=== PATIENT | male | born 1940 | race Caucasian/White ===

== ENCOUNTER → 2020-04-04 | Outpatient (CLI) | payer MEDICARE, BC ==
[~2020-04-04] MED LIST: AMLODIPINE BESYL5 MG PO; ARICEPT10 MG PO; ASPIRIN CHEWABL81 MG PO; AVODART0.5 MG PO; CEFUROXIME500 MG PO; CELECOXIB200 MG PO; CINNAMON500 MG PO; CLOPIDOGREL75 MG PO; CO Q-1010 MG PO; CRESTOR10 MG PO; CYMBALTA60 MG PO; DONEPEZIL HCL10 MG PO; ESCITALOPRAM OXA5 MG PO; FARXIGA5 MG PO; FISH OIL 1,2001 EAC1 PO; FLOMAX 0.4 MG0.4 MG PO; IBUPROFEN800 MG PO; IMDUR ER TAB 3030 MG PO; IMDUR ER TAB 6060 MG PO; ISOSORBIDE MONO20 MG PO; JANUMET 50-5001 EACH PO; LEVEMIR FL100 UNIT/1 SQ; MEDROL4 MG PO; MEN'S ONE DAIL1 EACH PO; NIACIN1000 MG PO; PERCOCET 5/325 T1 EA PO; PRILOSEC OTC20 MG PO; REQUIP0.5 MG PO; VITAMIN B12-FO1 EACH PO; VITAMIN D31000 UNI1 PO; VITAMIN E1000 UNI1 PO; ZOFRAN4 MG PO
[2020-04-04 14:39] LABS: HEMOGLOBIN 13.6 gm/dl (14.0-17.5); RED BLOOD COUNT 4.49 M/UL (4.20-5.50); WHITE BLOOD COUNT 7.2 K/UL (4.5-11.0)
[2020-04-04 15:00] LABS: BUN/CREATININE RATIO 18 (0-10)
== END ==
LOC: LAB 14:11
PROVIDERS: Internal Medicine Interventional Cardiology
DX: R94.39 Abnormal result of other cardiovascular function study (principal); R07.9 Chest pain, unspecified; E11.9 Type 2 diabetes mellitus without complications; I10 Essential (primary) hypertension
CPT/HCPCS: 36415; 80048; 85025; 85610; 85730; 93005; U0003

== ENCOUNTER → 2020-04-09 | Outpatient (CLI) | payer MEDICARE, BC | LOC: CATH 09:30 | DX: I25.118 Atherosclerotic heart disease of native coronary artery with other forms of angina pectoris (principal); I10 Essential (primary) hypertension; I25.10 Atherosclerotic heart disease of native coronary artery without angina pectoris; I34.0 Nonrheumatic mitral (valve) insufficiency; E11.9 Type 2 diabetes mellitus without complications; R94.39 Abnormal result of other cardiovascular function study; E78.5 Hyperlipidemia, unspecified; Z79.4 Long term (current) use of insulin; Z79.899 Other long term (current) drug therapy; Z88.0 Allergy status to penicillin; Z20.822 Contact with and (suspected) exposure to COVID-19 | CPT/HCPCS: 82962; 87635; 99152; 99153; C1769; C1894; J1644; J2250; J3010; J7030; Q9967 ==

== ENCOUNTER 2020-05-03 16:09 | Emergency (ER) | payer MEDICARE, BC ==
[2020-05-03 17:08] LABS: HEMOGLOBIN 12.7 gm/dl (14.0-17.5); RED BLOOD COUNT 4.15 M/UL (4.20-5.50); WHITE BLOOD COUNT 5.1 K/UL (4.5-11.0)
== END 2020-05-04 02:00 | disposition home or self-care (01) ==
LOC: ER1 16:09
PROVIDERS: Student in an Organized Health Care Education/Training Program
DX: R07.9 Chest pain, unspecified (principal); E11.9 Type 2 diabetes mellitus without complications; Z20.822 Contact with and (suspected) exposure to COVID-19; Z79.82 Long term (current) use of aspirin; Z87.891 Personal history of nicotine dependence; Z88.0 Allergy status to penicillin
CPT/HCPCS: 0240U; 36600; 71045; 80053; 82550; 82553; 82803; 83690; 83874; 83880; 84484; 85025; 93005; 99285; Q9967

== ENCOUNTER 2020-08-16 12:26 | Emergency (ER) | payer MEDICARE, BC ==
[2020-08-16 13:51] LABS: HEMOGLOBIN 12.7 gm/dl (14.0-17.5); RED BLOOD COUNT 4.24 M/UL (4.20-5.50); WHITE BLOOD COUNT 5.9 K/UL (4.5-11.0)
[2020-08-16 14:18] LABS: BUN/CREATININE RATIO 23 (0-10)
== END 2020-08-16 17:00 | disposition home or self-care (01) ==
LOC: ER1 12:26
PROVIDERS: Physician Assistant
DX: M54.5 Low back pain (principal); E11.9 Type 2 diabetes mellitus without complications; Z79.84 Long term (current) use of oral hypoglycemic drugs; Z79.899 Other long term (current) drug therapy; Z79.82 Long term (current) use of aspirin
CPT/HCPCS: 72131; 80053; 85025; 99284

== ENCOUNTER → 2020-09-19 | Outpatient (CLI) | payer MEDICARE, BC ==
[2020-09-19 12:15] LABS: HEMOGLOBIN 12.6 gm/dl (14.0-17.5); RED BLOOD COUNT 4.33 M/UL (4.20-5.50); WHITE BLOOD COUNT 5.6 K/UL (4.5-11.0)
== END ==
LOC: LAB 10:14
PROVIDERS: Ophthalmology
DX: M31.6 Other giant cell arteritis (principal)
CPT/HCPCS: 36415; 85027; 85652; 86140

== ENCOUNTER 2021-02-14 14:21 | Emergency (ER) | payer MEDICARE, BC ==
[2021-02-14 15:26] LABS: HEMOGLOBIN 14.5 gm/dl (14.0-17.5); RED BLOOD COUNT 4.92 M/UL (4.20-5.50); WHITE BLOOD COUNT 6.6 K/UL (4.5-11.0)
[2021-02-14 15:39] LABS: BUN/CREATININE RATIO 14 (0-10)
== END 2021-02-15 08:45 | disposition short-term general hospital (02) ==
LOC: ER1 14:21
PROVIDERS: Emergency Medicine
DX: I63.9 Cerebral infarction, unspecified (principal); I51.9 Heart disease, unspecified; E11.9 Type 2 diabetes mellitus without complications; Z20.822 Contact with and (suspected) exposure to COVID-19
CPT/HCPCS: 70450; 70496; 70498; 80053; 80307; 81001; 82550; 82553; 83605; 83735; 83874; 84484; 85025; 87086; 93005; 96374; 96375; 99285; G0480; J0360; J0696; Q9967; U0002

== ENCOUNTER → 2021-03-04 | Outpatient (CLI) | payer MEDICARE, BC ==
[2021-03-04 13:55] LABS: ADENOVIRUS F 40/41 Not Detected (Negative); ASTROVIRUS Not Detected (Negative); CAMPYLOBACTER Not Detected (Negative); CRYPTOSPORIDIUM Not Detected (Negative); E.COLI 0157 Not Detected (Negative); ENTAMOEBA HISTOLYTICA Not Detected (Negative); ENTEROAGGREGATIVE E.COLI (EAEC Not Detected (Negative); ENTEROPATHOGENIC E.COLI (EPEC) Not Detected (Negative); ENTEROTOXIGENIC E.COLI (ETEC) Not Detected (Negative); GIARDIA LAMBLIA Not Detected (Negative); NOROVIRUS GI/GII Not Detected (Negative); PLESIOMONAS SHIGELLOIDES Not Detected (Negative); ROTOVIRUS A Not Detected (Negative); SALMONELLA Not Detected (Negative); SAPOVIRUS Not Detected (Negative); SHIG/ENTEROINVAS.ECOLI (EIEC) Not Detected (Negative); SHIGA-LIK TOX.PRO.E.COLI (STEC Not Detected (Negative); VIBRIO Not Detected (Negative); VIBRIO CHOLERAE Not Detected (Negative); YERSINIA ENTEROCOLITICA Not Detected (Negative)
[2021-03-04 16:27] LABS: CLOSTRIDIUM DIFFICILE TOX A/B DETECTED (Negative)
== END ==
LOC: LBRF 11:52
PROVIDERS: Internal Medicine Gastroenterology
DX: R19.7 Diarrhea, unspecified (principal)
CPT/HCPCS: 87507

== ENCOUNTER → 2021-04-16 | Day surgery (SDC) | payer MEDICARE, BC ==
[~2021-04-16] MED LIST changes: +ALPRAZOLAM 0.0.25 MG GT; +AZO CRANBERRY1 EACH PO; +PREVAGEN; +PROBIOTIC1 EAC1 PO; +PROSTATE 2.4 C1 EACH PO; +SERTRALINE HCL25 MG PO; +VITAMIN C1000 MG PO; +ZINC30 MG PO
== END | disposition home or self-care (01) ==
LOC: OR 06:33
DX: K52.832 Lymphocytic colitis (principal); K57.30 Diverticulosis of large intestine without perforation or abscess without bleeding; K64.1 Second degree hemorrhoids; D50.9 Iron deficiency anemia, unspecified; I10 Essential (primary) hypertension; E11.9 Type 2 diabetes mellitus without complications; F41.9 Anxiety disorder, unspecified; F32.A Depression, unspecified; I48.91 Unspecified atrial fibrillation; Z95.818 Presence of other cardiac implants and grafts; Z86.73 Personal history of transient ischemic attack (TIA), and cerebral infarction without residual deficits; Z88.0 Allergy status to penicillin; Z79.4 Long term (current) use of insulin; Z79.82 Long term (current) use of aspirin; Z79.899 Other long term (current) drug therapy
CPT/HCPCS: 82962; J2001; J2704; J7040

== ENCOUNTER → 2021-05-05 | Outpatient (CLI) | payer MEDICARE, BC | LOC: EMI 10:06 | DX: R53.83 Other fatigue (principal); H53.9 Unspecified visual disturbance | CPT/HCPCS: 70551 ==

== ENCOUNTER 2021-08-12 19:38 | Inpatient (IN) | payer MEDICARE, BC ==
[~2021-08-12] VITALS: Ht 182.9 cm; Wt 68.0 kg
[~2021-08-12 19:38] MED LIST changes: -ARICEPT10 MG PO; +ARICEPT10 MG SL; -CRESTOR10 MG PO; +CRESTOR20 MG PO; -FISH OIL 1,2001 EAC1 PO; +FISH OIL 1,201200 MG PO
[2021-08-12 21:09] LABS: HEMOGLOBIN 12.9 gm/dl (14.0-17.5); RED BLOOD COUNT 4.2 M/UL (4.20-5.50)
[2021-08-12 21:11] LABS: WHITE BLOOD COUNT 4.7 K/UL (4.5-11.0)
[2021-08-12 21:47] LABS: BUN/CREATININE RATIO 11 (0-10)
[2021-08-13] MEDS ORDERED: IRON325 M1 PO (03:33)
[2021-08-13] MEDS ORDERED: SUPER B WITH V1 EACH PO (03:34)
[2021-08-13] MEDS ORDERED: VITAMIN D3125 MC1 PO (03:35)
[2021-08-13] MEDS ORDERED: VITAMIN B-6100 MG PO (03:37)
[2021-08-13] MEDS ORDERED: MAGNESIUM500 MG PO (03:37)
[2021-08-13] MEDS ORDERED: XANAX 0.25 MG0.25 MG PO (05:02)
[2021-08-13] MEDS ORDERED: LEVEMIR FL100 UNIT/1 SQ ×2 (05:04→05:09)
[2021-08-13 06:58] LABS: RED BLOOD COUNT 4.01 M/UL (4.20-5.50); WHITE BLOOD COUNT 5.5 K/UL (4.5-11.0)
[2021-08-13 07:29] LABS: BUN/CREATININE RATIO 9 (0-10)
[2021-08-13] MEDS ORDERED: BUDESONIDE EC3 MG PO (11:51)
[2021-08-13] MEDS ORDERED: ISOSORBIDE MONO60 MG PO (11:52)
[2021-08-13] MEDS ORDERED: CLOPIDOGREL75 MG PO (11:52)
[2021-08-13] MEDS ORDERED: JANUVIA100 MG PO (11:52)
[2021-08-13] MEDS ORDERED: CHOLESTYRAMINE P4 GM PO (11:55)
[2021-08-13 15:51] LABS: ADENOVIRUS F 40/41 Not Detected (Negative); ASTROVIRUS Not Detected (Negative); CAMPYLOBACTER Not Detected (Negative); CRYPTOSPORIDIUM Not Detected (Negative); E.COLI 0157 Not Detected (Negative); ENTAMOEBA HISTOLYTICA Not Detected (Negative); ENTEROAGGREGATIVE E.COLI (EAEC Not Detected (Negative); ENTEROPATHOGENIC E.COLI (EPEC) Not Detected (Negative); ENTEROTOXIGENIC E.COLI (ETEC) Not Detected (Negative); GIARDIA LAMBLIA Not Detected (Negative); NOROVIRUS GI/GII Not Detected (Negative); PLESIOMONAS SHIGELLOIDES Not Detected (Negative); ROTOVIRUS A Not Detected (Negative); SALMONELLA Not Detected (Negative); SAPOVIRUS Not Detected (Negative); SHIG/ENTEROINVAS.ECOLI (EIEC) Not Detected (Negative); SHIGA-LIK TOX.PRO.E.COLI (STEC Not Detected (Negative); VIBRIO Not Detected (Negative); VIBRIO CHOLERAE Not Detected (Negative); YERSINIA ENTEROCOLITICA Not Detected (Negative)
[2021-08-14 06:17] LABS: RED BLOOD COUNT 4.01 M/UL (4.20-5.50); WHITE BLOOD COUNT 4.8 K/UL (4.5-11.0)
[2021-08-14 06:34] LABS: BUN/CREATININE RATIO 5 (0-10)
[2021-08-14] MEDS ORDERED: POTASSIUM CHLO20 MEQ PO (09:26)
[2021-08-14] MEDS ORDERED: LOPERAMIDE2 M1 PO (09:26)
[2021-08-14 14:59] LABS: BUN/CREATININE RATIO 7 (0-10)
== END 2021-08-14 16:05 | disposition home or self-care (01) | DRG 641 ==
LOC: ER1 19:38 → CDU 23:54 → MED SURG 4 23:54
PROVIDERS: Internal Medicine; Physician Assistant; ADMIT Internal Medicine
DX: E87.6 Hypokalemia (principal); R19.7 Diarrhea, unspecified; E11.9 Type 2 diabetes mellitus without complications; I10 Essential (primary) hypertension; E78.5 Hyperlipidemia, unspecified; N40.0 Benign prostatic hyperplasia without lower urinary tract symptoms; E83.42 Hypomagnesemia; E87.1 Hypo-osmolality and hyponatremia; K21.9 Gastro-esophageal reflux disease without esophagitis; R63.4 Abnormal weight loss; Z98.890 Other specified postprocedural states; Z88.0 Allergy status to penicillin; Z79.899 Other long term (current) drug therapy; Z79.82 Long term (current) use of aspirin; Z68.20 Body mass index [BMI] 20.0-20.9, adult
CPT/HCPCS: 36415; 71045; 80048; 80053; 82550; 82553; 82784; 82962; 83516; 83605; 83690; 83735; 83993; 84132; 84484; 85025; 85027; 86682; 87177; 87209; 87507; 93005; 99285; G0378; J3480; J7120

== ENCOUNTER → 2021-08-17 | Outpatient (CLI) | payer MEDICARE, BC ==
[~2021-08-17] MED LIST changes: +BUDESONIDE EC3 MG PO; +CHOLESTYRAMINE P4 GM PO; +IRON325 M1 PO; +ISOSORBIDE MONO60 MG PO; +JANUVIA100 MG PO; +LOPERAMIDE2 M1 PO; +MAGNESIUM500 MG PO; +POTASSIUM CHLO20 MEQ PO; +SUPER B WITH V1 EACH PO; +VITAMIN B-6100 MG PO; +VITAMIN D3125 MC1 PO; +XANAX 0.25 MG0.25 MG PO
[2021-08-17 12:02] LABS: BUN/CREATININE RATIO 8 (0-10)
== END ==
LOC: LAB 11:05
PROVIDERS: Internal Medicine
DX: E87.6 Hypokalemia (principal)
CPT/HCPCS: 36415; 80048

== ENCOUNTER → 2021-08-18 | Outpatient (CLI) | payer MEDICARE, BC | LOC: LAB 16:38 | DX: K52.9 Noninfective gastroenteritis and colitis, unspecified (principal) | CPT/HCPCS: 36415; 83735 ==

== ENCOUNTER → 2021-09-02 | Outpatient (CLI) | payer MEDICARE, BC | LOC: RAD 11:30 | DX: K52.9 Noninfective gastroenteritis and colitis, unspecified (principal) | CPT/HCPCS: 74019 ==